=== PATIENT | female | born 1970 | race Caucasian/White ===

== ENCOUNTER 2018-09-23 00:30 | Emergency (ER) | payer SELFPAY ==
[~2018-09-23] VITALS: Ht 157.5 cm; Wt 84.0 kg
[2018-09-23] MEDS ORDERED: METHYLPREDNISOLONE SOD SUCC 125 MG/2 ML VIAL IV STA (01:23)
[2018-09-23] MEDS ORDERED: AZITHROMYCIN 500 MG TABLET PO ONE (01:30)
[2018-09-23] MEDS ORDERED: IPRATROPIUM/ALBUTEROL 0.5-3(2.5)MG/3ML NEB HHN ONE (01:30)
[2018-09-23 01:40] LABS: BASOPHILS % 0.6 % (0.0-2.0); EOSINOPHILS % 1.8 % (0.0-5.0); HEMATOCRIT. 31.1 % (36.0-48.0); HEMOGLOBIN. 9.4 g/dL (12.0-16.0); LYMPHOCYTES % 23.9 % (20.0-50.0); MEAN CORPUSCULAR HEMOGLOBIN 20.8 pg (28.0-32.0); MEAN CORPUSCULAR VOLUME 68.9 fL (81.0-99.0); MEAN PLATELET VOLUME 7.7 fl (7.4-10.4); MONOCYTES % 8.9 % (2.0-8.0); NEUTROPHILS % 64.8 % (40.0-76.0); PLATELET 564 x1000/uL (130-400); RED BLOOD CELL COUNT 4.52 mill/uL (4.2-5.4)
[2018-09-23 01:49] LABS: CHLORIDE 105 mEq/L (98-107)
[2018-09-23 01:55] LABS: ETHANOL BLOOD < 10 mg/dL; HCG SCREEN NEGATIVE
[2018-09-23 01:56] LABS: PLATELET ESTIMATE INCREASED
[2018-09-23] MEDS ORDERED: LEVOFLOXACIN 500MG TABLET PO ONE (02:45)
[2018-09-23 03:09] VITALS: BP 100/55
== END 2018-09-23 03:15 | disposition home or self-care (01) ==
LOC: ER 00:30
DX: J40 Bronchitis, not specified as acute or chronic (principal); I47.1 Supraventricular tachycardia; H33.8 Other retinal detachments; Z98.890 Other specified postprocedural states; Z87.891 Personal history of nicotine dependence; Z88.6 Allergy status to analgesic agent
CPT/HCPCS: 36415; 71045; 80053; 81025; 83880; 84484; 84703; 85025; 87186; 93005; 96374; 99284; J2930; J7620; Z7610